=== PATIENT | male | born 1990 | race Caucasian/White ===

== ENCOUNTER 2023-08-30 03:21 | Emergency (ER) | payer BC ==
[~2023-08-30] VITALS: Ht 182.9 cm; Wt 111.4 kg
--- NOTE | 2023-08-30 03:21 | NUR ---
pt refusignt o answer medical questions or let staff obtain vital signs. pt skin is pink, warm dry. airway patent, speaking in full sentences, equal chest rise and fall. ambulates without assistance and sits in chair unassisted. no apparent s/s of distress. in custody with [employer] officer. Addendum: 08/30/23 at 0501 by GENEVIEVE skin normal for ethnicity not pink.
--- NOTE | 2023-08-30 03:30 | NUR ---
unable to complete full assessment on patient due to refusal of vitals. Patient alert and oriented, apswering questions appropriately, airway patent, speaking in full sentences with officer, resp 18/min, skin normal for ethnicity/warm/diaphoretic. Patient ambulated into department with officer and able to sit upright in chair without assistance. upon inspection: pupils 4mm, conjuctiva pink and sclera white in color. face: no masses, trauma or edema noted. cheeks flushed red in color. pt able to move all extremities.
--- NOTE | 2023-08-30 03:50 | NUR ---
patient sitting upright in chair in hallway 16 with [employer] officer. patient talking loudly with officer. airway patent, speaking in full sentences. pt had episode of standing/pacing in hallway as well.
--- NOTE | 2023-08-30 04:09 | NUR ---
patient moved from hallway 16 and placed in room 3 with 4 [employer] officers per patients request. patient sitting on gurney and arguing with officers and displaying uncooperative behaviors with legal draw process. patient repeatedly asking questions of this nurse regarding the process of the venipuncture using the same verbiage. process explained to patient multiple times. michele asked this RN type and size of needle to be used for legal draw. 21G butterfly needle to be used to obtain sample. patient requesting to speak with Dr Batista regarding the RN's choice of needle size and to explain the legal draw process to him again. Stated to patient that it is in the RN scope of practice to perform venipuncture and that a 21G butterfly is appropriate for the large vein in right antecubital.
== END 2023-08-30 04:20 ==
LOC: ER 03:22
DX: Z02.89 Encounter for other administrative examinations (principal)
CPT/HCPCS: 99283